=== PATIENT | female | born 1975 | race Caucasian/White ===

== ENCOUNTER 2021-01-21 00:49 | Day surgery (SDC) | payer OTHER, SELFPAY ==
[2021-01-14 14:25] VITALS: BMI 26.6
--- NOTE | 2021-01-14 14:43 | PC.NURSE ---
Report to the Outpatient Waiting Room, entrance under the green pavilion located off [facility], at time 10:00 on date 01/21/21. OR Time: 12:00. - You and your visitor will be asked a series of questions to screen for COVID 19 for your protection. - A mask is required within the hospital. - Only one visitor is allowed at this time. Patient visitors will be guided where to wait when not with patient. Preoperative COVID Testing Requirements: No COVID Test needed if: (proof is required; if not received patient will have Rapid Test prior to entry) - Patient has received COVID Vaccine at least 14 days prior to procedure date or - Patient has positive COVID test result within last 90 days of surgery date. COVID Test needed if above criteria is not met If not COVID vaccinated a COVID test must be conducted within 72 hours of surgery and patient is asked to isolate self from time of testing until procedure. You will go to the [employer] [facility] for your COVID testing. The [employer] [facility] Testing site is located at the corner of [address] from [facility]. TO EMAIL RESULTS TO: [email or web address] You will only be called if COVID results are positive and your surgeon may reschedule your elective surgery date. Patients may have clear liquids (water, carbonated beverages, clear teas, apple juice) until 3 hours prior to surgery with a maximum of 20 ounces. - No food from midnight until time of surgery - Infants may have breast milk until 4 hours before surgery, formula 6 hours prior to surgery. - Children will be allowed to drink immediately following surgery. If applicable, please bring a bottle or sippy cup to assist with drinking. Juice, water, soda, and popsicles are readily available. For infants on formula, please bring formula the day of surgery. Pacifiers are allowed. Take the following medications with a SIP of water the morning of surgery: N/A Medications to discontinue per physician IBUPROFEN Date to take last dose PER DR. AVENDANO Please no make-up, nail estonian, hairspray, perfume, deodorant, or body powder the day of surgery. No jewelry (including any body piercings) or valuables the day of surgery, leave them at home. Please take a shower or bath the night before, or the morning of, surgery with an antibacterial soap. Wear comfortable, loose fitting clothing. Children are encouraged to wear pajamas. - Jewelry must be removed prior to entering the operating room. Rings and piercings that are not removed may be cut off. - The hospital will not accept responsibility for valuables. - Please leave all valuables, including medications, at home the day of surgery. If you are going home after surgery, a licensed bus driver/monitor must drive you home. - NO public transportation without another adult. - We recommend that an adult stay with you for 24 hours following discharge. - We also recommend that you do not drive, make important decision, drink alcoholic beverages, or take any drugs that were not prescribed by your health care provider for at least 24 hours after your discharge time. For Pediatric surgeries, we recommend two adults accompany the child home (only one inside the building at this time). Follow any additional instructions given to you from your surgeon. Telephone instructions given to KENYETTA HE and asked if any additional questions and then verbalized understanding. Patient advised to call surgeon office or pre surgery nurse liaison [phone] if any additional questions.
--- NOTE | 2021-01-17 16:01 | P.HP_ITS ---
H&P: HPI History of Present Illness Date/Time: 01/17/21 16:01 amenorrheic since ablation other than occasional s potting. Worsening RLQ pain radiating around to back. No dyspareunia or new partner. No hot flashes or night sweats Chief Complaint: left ovarian cyst, pelvic pain Review of Systems Review of Systems: All systems reviewed & are unremarkable except as noted in HPI and below PMFSH Past Medical History Medical History Bone spur in shoulder Kidney stones Missed maybe 10? Vaginal delivery X2 Surgical History Surgical History H/O tubal ligation History of endometrial ablation Family History Family History Mother Breast cancer Diabetes mellitus Hypertension Hyperlipidemia Grandparent Bladder cancer Carcinoma of colon Social History Social History Smoking status: Never smoker Alcohol intake: never Substance use: never Substance use type: does not use Spiritual care concerns: No Meds Home Medications and Allergies Home Medications Medication Instructions Recorded Confirmed Type tamsulosin 0.4 mg capsule 0.4 mg PO DAILY 12/10/20 01/14/21 History trazodone 50 mg tablet 50 mg PO QHS PRN 12/10/20 01/14/21 History Allergies Allergy/AdvReac Type Severity Reaction Status Date / Time No Known Allergies Allergy Verified 01/14/21 14:24 Exam Const: General: healthy appearing, no acute distress, alert and awake Resp: Auscultation: clear to auscultation bilaterally Cardio: Rate: regular rate Rhythm: regular rhythm GI: Inspection: non-distended GI Palp: Yes Soft to palpation and No Tenderness to palpation present (GI) : Bimanual exam- vagina & uterus: normal bimanual exam, uterine size normal, uterine mobility normal, non-tender and soft Bimanual Exam- Adnexa, other: no masses and tender Extrem: General: no pedal edema and no calf tenderness Psych: Mental Status: mental status grossly normal Assessment and Plan Assessment and plan (1) Left ovarian cyst: Code(s): N83.202 - Unspecified ovarian cyst, left side Status: Acute Assessment and Plan: She opted and signed consent for L/S BSO after risks, benefits, complications, and alternatives discussed due to persistent ovarian cyst and worsening pain. She is already in menopause based on FSH level and asymptomatic. She expressed understanding of R/B/C/A and wishes to proceed (2) Pelvic pain: Code(s): R10.2 - Pelvic and perineal pain Status: Acute
[2021-01-21] VITALS (11 sets, daily range): BP systolic 96–132; BP diastolic 48–72; PULSE 47–84; RESP 14–16; TEMP 36.4–36.5; O2SAT 100
--- NOTE | 2021-01-21 07:43 | WPDANESEPPF ---
Anes - Initial Pre Proc Eval Procedure: Operation Date: 01/21/21 12:00 Proposed Procedures p Laparoscopic Bilateral Salpingo-Oophorectomy - Lilia Reyes MD Date/Time: 01/21/21 07:43 Surgeon: Lilia Reyes MD Pre Op Diagnosis: ovarian cyst, pelvic pain Patient Data Age: 46 Gender: F Height: 1.68 m Weight: 75 kg Allergies Allergy/AdvReac Type Severity Reaction Status Date / Time No Known Allergies Allergy Verified 01/21/21 10:46 Home Medications Medication Instructions Recorded Confirmed Type tamsulosin 0.4 mg capsule 0.4 mg PO DAILY 12/10/20 01/21/21 History trazodone 50 mg tablet 50 mg PO QHS PRN 12/10/20 01/21/21 History Patient hx anesthesia problems: none Family hx anesthesia problems: none Results Review: All pre-operative results and documents have been reviewed as part of the pre-operative evaluation. [facility] Past Medical History Medical History (Updated 01/21/21 @ 07:44 by Shamir Giang MD) Anxiety Bone spur in shoulder Kidney stones Missed maybe 10? Overweight (BMI 25.0-29.9) Ureterolithiasis Vaginal delivery X2 Surgical History Surgical History H/O tubal ligation History of endometrial ablation Family History Family History Mother Breast cancer Diabetes mellitus Hypertension Hyperlipidemia Grandparent Bladder cancer Carcinoma of colon Social History Social History Smoking status: Never smoker Alcohol intake: never Substance use: never Substance use type: does not use Living arrangements: with family Spiritual care concerns: No Anes - Eval Final PreProcedure Day of Procedure 01/21/21 07:43 Patient weight: overweight Heart: regular rate and rhythm Lungs: clear to auscultation and normal air movement Airway: Mallampati scale class II Neurological: alert and oriented Last oral intake: >/= 8 hours ASA classification: II Emergent: no Anesthetic plan: proceed Anesthesia type and monitoring: general ETT Results Review: All pre-operative results and documents have been reviewed as part of the pre-operative evaluation. Informed Consent: The patient's anesthetic plan and its attendant risks and benefits were discussed with the patient/family/POA. Questions were solicited and answers provided to the satisfaction of the patient/family/POA.
[2021-01-21] MEDS: ACETAMINOPHEN 500 MG TABLET 1000 MG PO (10:59)
[2021-01-21] MEDS: LACTATED RINGERS 1,000 ML 30 ML IV CONT ×2 (11:13→14:00)
[2021-01-21] MEDS: KETOROLAC 15 MG/ML VIAL (*BKC) IV PUSH (11:24)
--- NOTE | 2021-01-21 12:01 | WPDHPUPDATE1 ---
History and Physical Update Update Date/Time: 01/21/21 12:01 History and Physical has been reviewed, including an updated exam of the patient. There are NO changes in the patient's condition. Risks, benefits, and alternatives have been discussed and questions answered. Patient agrees to proceed with procedure.
--- NOTE | 2021-01-21 12:21 | W.PM.PROC2 ---
Procedure Note - Detailed Date of Procedure 01/21/21 Pre-op Diagnosis ovarian cyst, pelvic pain Post-op Diagnosis other (ovarian cyst, pelvic pain, bilateral hydrosalpinx, endometriosis) Procedure Performed L/S BSO, cauterization of endometriosis Surgeon Lilia Reyes MD Anesthesia general Indications persistent left ovarian cyst with worsening pelvic pain Findings Bilateral hydrosalpinx, 2-3 cm right serous fluid filled ovarian cyst. 2 cm endometriosis implant in left paraovarian fossa. Normal uterus, appendix, liver Description of Procedure She was taken to the operating room where general anesthesia was obtained. She was prepared and draped in the normal sterile fashion in the dorsal lithotomy position. Marcaine was injected infraumbilically, and a 5 mm skin incision was made in the infraumbilical fold with a scalpel. A 5 mm non bladed trocar was placed with the camera in the trocar under direct visualization into the peritoneal cavity. Insufflation was begun and she was placed in Trendelenburg. Another 5 mm trocar was placed in the right lower quadrant under direct visualization. A 12 mm trocar was then placed in the midline suprapubic area under direct visualization. Inspection of the pelvis revealed the findings as noted above. The right mesosalpinx was serially clamped and transected using the Harmonic scalpel. The fallopian tube was transected at its insertion to the uterus. The utero-ovarian ligament was also transected. The right fallopian tube and ovary was placed in the cul-de-sac. Attention was then turned to the left side. The left nasal salpinx, utero-ovarian ligament, and fallopian tube were all transected. The left tube and ovary were also placed in the cul-de-sac. An endo-pouch was placed in the suprapubic trocar. Both tubes and ovaries were placed in the pouch. The patch would not fit out the suprapubic incision, so it was slightly extended at the skin using the scalpel and at the fascia using Metzenbaum scissors. The pouch was then easily brought through the incision. The pelvis was copiously irrigated. All operative sites were inspected and found to be hemostatic. There was 1 endometriosis implant noted in the left paraovarian fossa. The Harmonic scalpel was used to cauterize that implant. There was no other visible endometriosis. The Carson-Josh device along with an 0 Vicryl was used to close the fascia of the suprapubic incision. The pneumoperitoneum was allowed to escape. All trocars were removed. All 3 skin incisions were closed using 4-0 Monocryl in subcuticular fashion. She tolerated the procedure well. Sponge, lap, needle, and instrument counts were correct x2. She was taken to the recovery room in stable condition. Estimated Blood Loss 20 Drains No Packing No Pathology yes Complications No immediate complications Condition stable Disposition PACU
[2021-01-21] MEDS: ONDANSETRON INJ 4 MG/2 ML VIAL IV PUSH (13:38)
[2021-01-21] MEDS: HALOPERIDOL LACTATE 5 MG/ML VIAL 1 MG IV PUSH (14:18)
[2021-01-21] MEDS: SCOPOLAMINE 1.5 MG PATCH TRANSDERM (14:19)
[2021-01-21] MEDS: oxyCODONE HCL (*CRX) 5 MG TAB IR PO (15:03)
== END 2021-01-21 15:50 | disposition home or self-care (01) ==
PROVIDERS: Visit Provider Obstetrics & Gynecology
PROC: (CPT 49320; principal; 2021-01-21 12:00)
DX: N83.02 Follicular cyst of left ovary (principal); N83.8 Other noninflammatory disorders of ovary, fallopian tube and broad ligament; N80.2 Endometriosis of fallopian tube; N83.01 Follicular cyst of right ovary; N83.292 Other ovarian cyst, left side; N83.291 Other ovarian cyst, right side; R10.2 Pelvic and perineal pain; R10.31 Right lower quadrant pain; N70.11 Chronic salpingitis; N80.1 Endometriosis of ovary; M19.90 Unspecified osteoarthritis, unspecified site
CPT/HCPCS: 58661; 58662; 88305; A9270; J0330; J1100; J1630; J1885; J2250; J2370; J2405; J2704; J2710; J3010; J7120